=== PATIENT | female | born 1985 | race Caucasian/White ===

== ENCOUNTER 2016-12-20 16:58 | Emergency (ER) | payer OTHER ==
[2016-12-20 16:58] VITALS: BMI 28.1
[2016-12-20 20:03] LABS: BASO % 0.4 % (0.0-2.0); EOS # 0.3 K/uL (0.0-0.7); EOS % 2.2 % (0.0-4.0); HEMATOCRIT 30.9 % (34.0-47.0); LYMPH # 2.5 K/uL (1.0-4.3); LYMPH % 22.5 % (20.0-40.0); MEAN CELL VOLUME 78.4 fL (81.0-99.0); MEAN CORPUSCULAR HEMOGLOBIN 24.3 pg (27.0-31.0); MEAN PLATELET VOLUME 8.6 fL (7.2-11.7); MONO # 0.9 K/uL (0.0-0.8); MONO % 7.7 % (0.0-10.0); RED CELL DISTRIBUTION WIDTH 14.3 % (11.5-14.5); WHITE BLOOD COUNT 11.3 K/uL (4.8-10.8)
[2016-12-20 20:07] LABS: CHLORIDE 102 mmol/L (98-107); POTASSIUM 3.8 mmol/L (3.6-5.2); SODIUM 137 mmol/L (132-148)
[2016-12-20 20:09] LABS: GFR AFRICAN-AMERICAN > 60
[2016-12-20 20:10] LABS: ALB/GLOB RATIO 1.2 (1.0-2.1); ALKALINE PHOSPHATASE 58 U/L (38-126); ALT/SGPT 36 U/L (9-52); AST/SGOT 23 U/L (14-36); BILIRUBIN,TOTAL 0.4 mg/dL (0.2-1.3); BLOOD UREA NITROGEN 8 mg/dL (7-17); CALCIUM 8.2 mg/dl (8.6-10.4); CARBON DIOXIDE 26 mmol/L (22-30); GLUCOSE,RANDOM 97 mg/dL (65-105); TOTAL PROTEIN 7.6 g/dL (6.3-8.3)
--- NOTE | 2016-12-20 20:10 | C.PDOC ---
History Of Present Illness The patient, a 31 y/o female, presents to the ED for evaluation of lower abdominal pain which began today. Patient states she was evaluated in [facility] around 2 days ago and was informed of early with Beta count of 197. Patient underwent Ultrasound; results showed no definite . Patient denies fever, chills, back pain, dysuria, vaginal bleeding/ discharge. Chief Complaint (Nursing): Abdominal Pain History Per: Patient History/Exam Limitations: no limitations Onset/Duration Of Symptoms: Days (2) Current Symptoms Are (Timing): Still Present Location Of Pain/Discomfort: Other (lower abdomen ) Radiation Of Pain To:: None Quality Of Discomfort: "Pain" Associated Symptoms: denies: Fever, Chills, Nausea, Vomiting, Back Pain Exacerbating Factors: None Alleviating Factors: None Last Bowel Movement: Today Additional History Per: Patient Abnormal Vaginal Bleeding: No Past Medical History Reviewed: Historical Data, Nursing Documentation, Vital Signs Vital Signs: Last Vital Signs Temp 98.5 F 12/20/16 17:08 Pulse 87 12/20/16 17:08 Resp 15 12/20/16 17:08 BP 141/81 12/20/16 17:08 Pulse Ox 100 12/20/16 21:38 - Medical History PMH: No Chronic Diseases Surgical History: - [facility] Procedures LOW CERVICAL (07/03/13) PACKED CELL TRANSFUSION (07/03/13) Family History: States: Unknown Family Hx - Social History Hx Tobacco Use: No Hx Alcohol Use: No Hx Substance Use: No - Immunization History Hx Tetanus Toxoid Vaccination: Yes Hx Influenza Vaccination: Yes Hx Pneumococcal Vaccination: Yes Review Of Systems Except As Marked, All Systems Reviewed And Found Negative. Constitutional: Negative for: Fever, Chills Gastrointestinal: Positive for: Abdominal Pain (lower ). Negative for: Nausea, Vomiting Genitourinary: Negative for: Vaginal Discharge, Vaginal Bleeding Musculoskeletal: Negative for: Back Pain Physical Exam - Physical Exam Appears: Non-toxic, No Acute Distress Skin: Normal Color, Warm, Dry Head: Atraumatic, Normacephalic Eye(s): bilateral: Normal Inspection Oral Mucosa: Moist Neck: Normal ROM, Supple Chest: Symmetrical, No Deformity, No Tenderness Cardiovascular: Rhythm Regular, No Murmur Respiratory: Normal Breath Sounds, No Rales, No Rhonchi, No Wheezing Gastrointestinal/Abdominal: Tenderness (mild to siprapubic region ), No Guarding , No Rebound Back: Normal Inspection, No Vertebral Tenderness, No Paraspinal Tenderness Extremity: Normal ROM, Capillary Refill (less than 2 seconds ) Neurological/Psych: Oriented x3, Normal Speech, Normal Cognition Gait: Steady ED Course And Treatment - Laboratory Results Result Diagrams: 12/20/16 19:50 12/20/16 19:50 O2 Sat by Pulse Oximetry: 100 (on RA) Pulse Ox Interpretation: Normal - CT Scan/US US Pelvis transabdominal Other Rad Studies (CT/US): Interpreted By Me, Read By Radiologist, Radiology Report Reviewed CT/US Interpretation: EXAM: US Pelvis Complete, Transabdominal. US Pelvis, Transvaginal. CLINICAL HISTORY: 31 years old, female; Pain; Pelvic pain; Additional info: Lower abd pain. TECHNIQUE: Real-time transabdominal and transvaginal pelvic ultrasound (complete) with image documentation. Transvaginal imaging was used for better evaluation of the endometrium and adnexa. COMPARISON: No relevant prior studies available. FINDINGS: Uterus/ cervix: The uterus measures 9.3 x 4.2 x 5.5 cm. Endovaginal ultrasound was performed for. more precise delineation of the endometrium and the ovaries. The ovaries were not well seen. Bladder: Unremarkable as visualized. Wall is normal thickness for degree of distention. IMPRESSION: Endometrial stripe and ovaries not clearly delineated. US Pelvis, transvaginal Other Rad Studies (CT/US): Interpreted By Me, Read By Radiologist, Radiology Report Reviewed CT/US Interpretation: EXAM: US Pelvis, Transvaginal. CLINICAL HISTORY: 31 years old, female; Pain; Pelvic pain; Additional info: Lower abd pain. TECHNIQUE: Real-time transvaginal pelvic ultrasound (complete) with image documentation. Transvaginal. imaging was used for better evaluation of the endometrium and adnexa. EXAM DATE/TIME: Exam ordered 12/20/2016 7:41 PM. COMPARISON: US - OB TRANSVAGINAL 11/15/2015 1:11:03 AM. FINDINGS: Uterus/cervix: The endometrium stripe measures 1 cm in thickness. Nabothian cysts are seen in the. cervix. Right ovary: The right ovary measures 6.2 x 4.8 x 5 cm and contains 2 dominant cysts. One. measures 2.4 cm in greatest diameter appears to be a simple cyst. A second measures 4 cm in. greatest diameter and contains a internal septation which is slightly thickened. Echoes are noted. within the cyst fluid. Blood flow is demonstrated within the right ovary on color Doppler and pulse. Doppler examination. Left ovary: Left ovary measures 4.1 x 2.2 x 3.8 cm and contains several subcentimeter follicles. A. small amount of free fluid is seen around the ovary. Blood flow is demonstrated within the left ovary. on color Doppler and pulsed of her examination. Free fluid: There is small amount of free fluid in the posterior cul-de-sac. Bladder : Empty bladder which cannot be evaluated with this probe. IMPRESSION: 1. Complex right ovarian cyst. In light of the slightly thickened internal septation, followup in 6 weeks. should be considered to document resolution. Progress Note: labs and US ordered and reviewed. Disposition Counseled Patient/Family Regarding: Diagnosis - Disposition Referrals: [facility] [Outside] Disposition: HOME/ ROUTINE Disposition Time: 21:36 Condition: STABLE Prescriptions: Nitrofurantoin Macrocrystals [Macrobid] 100 mg PO BID #14 cap Instructions: (ED), Urinary Tract Infection in (ED) - POA Present On Arrival: None - Clinical Impression Clinical Impression: Early stage of , Urinary tract infection affecting - Scribe Statement The provider has reviewed the documentation as recorded by the Scribe (Jael Grimes) Provider Attestation: All medical record entries made by the Scribe were at my direction and personally dictated by me. I have reviewed the chart and agree that the record accurately reflects my personal performance of the history, physical exam, medical decision making, and the department course for this patient. I have also personally directed, reviewed, and agree with the discharge instructions and disposition.
--- NOTE | 2016-12-20 20:42 | US ---
EXAM: US Pelvis Complete, Transabdominal US Pelvis, Transvaginal CLINICAL HISTORY: 31 years old, female; Pain; Pelvic pain; Additional info: Lower abd pain TECHNIQUE: Real-time transabdominal and transvaginal pelvic ultrasound (complete) with image documentation. Transvaginal imaging was used for better evaluation of the endometrium and adnexa. COMPARISON: No relevant prior studies available. FINDINGS: Uterus/cervix: The uterus measures 9.3 x 4.2 x 5.5 cm. Endovaginal ultrasound was performed for more precise delineation of the endometrium and the ovaries The ovaries were not well seen. Bladder: Unremarkable as visualized. Wall is normal thickness for degree of distention. IMPRESSION: Endometrial stripe and ovaries not clearly delineated. EXAM: US Pelvis, Transvaginal CLINICAL HISTORY: 31 years old, female; Pain; Pelvic pain; Additional info: Lower abd pain TECHNIQUE: Real-time transvaginal pelvic ultrasound (complete) with image documentation. Transvaginal imaging was used for better evaluation of the endometrium and adnexa. EXAM DATE/TIME: Exam ordered 12/20/2016 7:41 PM COMPARISON: US - OB TRANSVAGINAL 11/15/2015 1:11:03 AM FINDINGS: Uterus/cervix: The endometrium stripe measures 1 cm in thickness. Nabothian cysts are seen in the cervix. Right ovary: The right ovary measures 6.2 x 4.8 x 5 cm and contains 2 dominant cysts. One measures 2.4 cm in greatest diameter appears to be a simple cyst. A second measures 4 cm in greatest diameter and contains a internal septation which is slightly thickened. Echoes are noted within the cyst fluid. Blood flow is demonstrated within the right ovary on color Doppler and pulse Doppler examination. Left ovary: Left ovary measures 4.1 x 2.2 x 3.8 cm and contains several subcentimeter follicles. A small amount of free fluid is seen around the ovary. Blood flow is demonstrated within the left ovary on color Doppler and pulsed of her examination. Free fluid: There is small amount of free fluid in the posterior cul-de-sac. Bladder: Empty bladder which cannot be evaluated with this probe. IMPRESSION: 1. Complex right ovarian cyst. In light of the slightly thickened internal septation, followup in 6 weeks should be considered to document resolution.
[2016-12-20 20:47] LABS: RBC URINE 6 /hpf (0-3); URINE BILIRUBIN NEGATIVE (NEGATIVE); URINE COLOR Yellow (YELLOW); URINE GLUCOSE (UA) 2+ mg/dL (Normal); URINE KETONE NEGATIVE (NEGATIVE); URINE LEUKOCYTE ESTERASE 1+ Leu/uL (Negative); URINE PROTEIN NEGATIVE (NEGATIVE); URINE UROBILINOGEN NORMAL mg/dL (0.2-1.0); WBC URINE 6 /hpf (0-5)
[2016-12-20 20:49] LABS: URINE BACTERIA RARE (<OCC); URINE BLOOD 1+ (NEGATIVE)
[2016-12-20 22:01] VITALS: BP 123/74; PULSE 91; RESP 18; TEMP 98.2; O2SAT 99
== END 2016-12-20 22:00 | disposition home or self-care (01) ==
LOC: C.ER 16:58
DX: O23.41 Unspecified infection of urinary tract in pregnancy, first trimester (principal)

== ENCOUNTER 2017-11-02 20:56 | Emergency (ER) | payer OTHER ==
[2017-11-02 20:56] VITALS: BMI 28.1
[2017-11-02 21:11] VITALS: O2SAT 100
[2017-11-02] MEDS ORDERED: Sodium Chloride 0.9% 1,000 ML IV ONE ×2 (22:31→23:21)
[2017-11-02] MEDS ORDERED: Sodium Chloride 0.9% 1,000 ML ONE ×2 (22:37→23:37)
[2017-11-02 22:51] LABS: BASO # 0.1 K/uL (0.0-0.2); BASO % 0.8 % (0.0-2.0); EOS # 0.1 K/uL (0.0-0.7); HEMOGLOBIN 11.4 g/dL (11.0-16.0); LYMPH # 3.2 K/uL (1.0-4.3); MEAN CELL VOLUME 84.5 fL (81.0-99.0); MEAN CORPUSCULAR HEMOGLOBIN 27.3 pg (27.0-31.0); MEAN CORPUSCULAR HGB CONC 32.3 g/dL (33.0-37.0); MEAN PLATELET VOLUME 9.1 fL (7.2-11.7); MONO # 0.7 K/uL (0.0-0.8); MONO % 5.2 % (0.0-10.0); NEUT # 8.6 K/uL (1.8-7.0); RBC 4.18 Mil/uL (3.80-5.20); RED CELL DISTRIBUTION WIDTH 15.8 % (11.5-14.5); WHITE BLOOD COUNT 12.6 K/uL (4.8-10.8)
--- NOTE | 2017-11-02 22:52 | C.PDOC ---
History Of Present Illness Patient is a 32 y/o female, 8 weeks , who presents to the ED with a complaint of vomiting for the last week with onset of diarrhea today. Patient reports to have seen PMD for symptoms who suggested possible dehydration, prompting ED visit. Patient has Hx of DM, check her glucose several times a day and has been managing with insulin. Denies any fever, abdominal pain, vaginal bleeding or discharge. Patient notes otherwise, does not feel sick. Time Seen by Provider: 11/02/17 22:24 Chief Complaint (Nursing): GI Problem History Per: Patient History/Exam Limitations: no limitations Onset/Duration Of Symptoms: Days (1 week) Current Symptoms Are (Timing): Still Present Recent travel outside of the [place]: No Past Medical History Reviewed: Historical Data, Nursing Documentation, Vital Signs Vital Signs: Last Vital Signs Temp 98.0 F 11/02/17 21:07 Pulse 84 11/02/17 21:07 Resp 16 11/02/17 21:07 BP 138/87 11/02/17 21:07 Pulse Ox 100 11/02/17 22:55 - Medical History PMH: Diabetes Surgical History: - [facility] Procedures LOW CERVICAL (07/03/13) PACKED CELL TRANSFUSION (07/03/13) Family History: States: No Known Family Hx - Social History Hx Tobacco Use: No Hx Alcohol Use: No Hx Substance Use: No - Immunization History Hx Tetanus Toxoid Vaccination: Yes Hx Influenza Vaccination: Yes Hx Pneumococcal Vaccination: Yes Review Of Systems Constitutional: Negative for: Fever Gastrointestinal: Positive for: Vomiting, Diarrhea. Negative for: Abdominal Pain Genitourinary: Negative for: Vaginal Discharge, Vaginal Bleeding Physical Exam - Physical Exam Appears: Well, Non-toxic, No Acute Distress Skin: Normal Color, Warm, Dry Head: Atraumatic, Normacephalic Oral Mucosa: Moist Chest: Symmetrical Cardiovascular: Rhythm Regular, No Murmur Respiratory: Normal Breath Sounds, No Rales, No Rhonchi, No Wheezing Gastrointestinal/Abdominal: Soft, No Tenderness Neurological/Psych: Oriented x3, Normal Speech, Normal Cognition ED Course And Treatment - Laboratory Results Result Diagrams: 11/02/17 22:46 11/02/17 22:46 Lab Interpretation: Abnormal (HCO3 20, BHCG 180450.00) O2 Sat by Pulse Oximetry: 100 Pulse Ox Interpretation: Normal Progress Note: HCG urine, blood work, and UA ordered. Zofran and IV fluids administered. Reevaluation Time: 23:56 Reassessment Condition: Improved (No further nausea after Zofran. Feels better after hydration.) Disposition Counseled Patient/Family Regarding: Studies Performed, Diagnosis, Need For Followup - Disposition Referrals: Roby Brown MD [Medical Doctor] - Disposition: HOME/ ROUTINE Disposition Time: 23:59 Condition: IMPROVED Additional Instructions: Take the medication as prescribed by your doctor for nausea. Instructions: Nausea and Vomiting of Forms: [employer] (Croatian) - Clinical Impression Clinical Impression: Hyperemesis affecting , antepartum - Scribe Statement The provider has reviewed the documentation as recorded by the Scribe Sandra Murguia All medical record entries made by the Scribe were at my direction and personally dictated by me. I have reviewed the chart and agree that the record accurately reflects my personal performance of the history, physical exam, medical decision making, and the department course for this patient. I have also personally directed, reviewed, and agree with the discharge instructions and disposition.
[2017-11-02 22:57] LABS: SQUAMOUS EPITHIAL 3 /hpf (0-5); URINE BILIRUBIN NEGATIVE (NEGATIVE); URINE BLOOD NEGATIVE (NEGATIVE); URINE CLARITY Hazy (Clear); URINE COLOR Yellow (YELLOW); URINE GLUCOSE (UA) NORMAL (Normal); URINE LEUKOCYTE ESTERASE NEG Leu/uL (Negative); URINE PROTEIN NEGATIVE (NEGATIVE); URINE UROBILINOGEN NORMAL mg/dL (0.2-1.0)
[2017-11-02 23:01] LABS: ALBUMIN 4.4 g/dL (3.5-5.0); ALT/SGPT 19 U/L (9-52); AST/SGOT 24 U/L (14-36); BLOOD UREA NITROGEN 9 mg/dL (7-17); CALCIUM 9.3 mg/dl (8.6-10.4); GFR AFRICAN-AMERICAN > 60; GFR NON-AFRICAN AMERICAN > 60
[2017-11-03 00:42] VITALS: BP 135/74; PULSE 83; RESP 22; TEMP 98.5
== END 2017-11-03 01:05 | disposition home or self-care (01) ==
LOC: C.ER 20:56
DX: O21.0 Mild hyperemesis gravidarum (principal); Z3A.08 8 weeks gestation of pregnancy
CPT/HCPCS: 80053; 81001; 82948; 84702; 85025; 96361; 96374; 99284; J2405; J7040

== ENCOUNTER 2018-05-09 20:45 | Emergency (ER) | payer OTHER ==
[2018-05-09 21:11] VITALS: BMI 29.4
[2018-05-09] MEDS ORDERED: (Novolog) Insulin Aspart, Recombinant 100 u/ml 10 ml vial SC ONE (21:30)
[2018-05-09 22:05] LABS: SQUAMOUS EPITHIAL 6 /hpf (0-5); URINE BACTERIA OCC (<OCC); URINE BILIRUBIN NEGATIVE (NEGATIVE); URINE BLOOD NEGATIVE (NEGATIVE); URINE CLARITY Clear (Clear); URINE COLOR Yellow (YELLOW); URINE GLUCOSE (UA) 3+ mg/dL (Normal); URINE LEUKOCYTE ESTERASE NEG Leu/uL (Negative); URINE PROTEIN NEGATIVE (NEGATIVE); URINE UROBILINOGEN NORMAL mg/dL (0.2-1.0)
--- NOTE | 2018-05-10 00:54 | OBHP ---
Datetime: 05/09/2018 21:02 IP Adm Impression: Postterm, intrauterine IP Chief Complaint Other: headache, 05/08/18 IP Admit Plan: Discharge home Admit Comment, IP Provider: 33 y.o. , LMP 09/04/17, LANDRY 06/12/18, Ega 35w 1d, previous C/S x 1, type II DM presents c/o headache, onset 05/08/18; no headache now, just reports a "heaviness to he r head". Denies blurred vision, dizziness, loss of consciousness. Decreased FM - "all day"; denies LO F, VB, Ctx. F.S.: a) 05/08 96/102/130 (admits to eating something not approoved for DM)/116. b) 1/ didn't eat luch/ 199 at 2100 hours on L_D. care: [facility] [place], high risk clinic: prev C/S, type II DM, on baby ASA - "to prevent clots". "cyst on baby" - S/P amniocentesis and MRI - all "negative". P Ob: 2012, C/S, achieved fully dilated; failure to descend; female, 9 1/2 lb; gestational DM on m etformin. Spont ab x 2: 2016 @ 10 weeks, 2017, 4 weeks - no D_C in either situation. P [employer]: 12 x monthly x 5. no h/o abnormal Pap, myoma, ovarian cysts. PMH: DM, 2012 PSH: C/S NKDA Meds: Metformin 500 mg p.o. BID; insulin 8 units QHS; baby ASA - QD; PNV - QD Soc Hx: denies tobacco, illicit drug or EtOH use. x 6 years Fam Hx: Mother alive 57 - DM. Father alive 53 y.o. - Hodgkin's lymphoma P.E.: as above. Mildly obese, in NAD. Awake, alert, oriented to time, person and place. Cooperati ve. - U/A: glucose 3+ (collected less than 1 hours after eating); all else neg/wnl - F.S. 199. 2 units Novolog given. F.S. 1 hour after = 130 mg/dL. - Review of images (report pending): cephalic, anterior placenta, TRAMAINE 12.5 cm; BPS 02/22 Assessment: 33 y.o. P1021, 35w 1d, prev C/S, Type 2 DM, decreased FM - improved. Category 1 tracin g. Not in labor. F.S. with adequate response to insulin. Patient to check F.S. when she gets home; an d to take 1/2 her bedtime insulin dose if >130 mg/dL. Patient is clinically stable. Plan: 1) Discharge 2) as above. 3) Keep appointment, 05/11/18 Pelvic Type - PN: Adequate Extremities - PN: Normal Abdomen - PN: Normal Back - PN: Normal Breast - PN: Not Done Lungs - PN: Normal Heart - PN: Normal Thyroid - PN: Not Done Neurologic - PN: Normal HEENT - PN: Normal General - PN: Normal FHR - Baseline A Provider: 150 Comments, ACOG Physical Exam: Abdomen: Gravid. Obese. Soft, non tender. Healed Pfannenstiel scar. All other systems reviewed and are negative Gestation - Est Wks by US: 35w 1d IP Chief Complaint: Other NICHD Variability Prov Fetus A: Moderate 6-25bpm NICHD Accel Fetus A IP Provider: [id number] FHR Category Provider Fetus A: Category I NICHD Decel Fetus A IP Provider: None Dilatation, Provider: 35w 1d Genitourinary Exam: Normal DTRs - PN: Not Done
[2018-05-10 10:56] VITALS: BP 108/69; PULSE 83; RESP 20; TEMP 98.7
--- NOTE | 2018-05-10 11:06 | US ---
Indication: decr FM; 35w 1d, Type2 DM Comparison: None available Technique: Real-time ultrasound was performed through the pelvis. Findings: There is a single living fetus in cephalic presentation. Amniotic fluid volume is within normal limits. Anterior placenta. The placenta is not previa. There are no adnexal masses or cysts evident. Cervix length measures approximately 3.1 cm. Please note that this study was performed for the emergent evaluation of decreased movement, and the whole anatomic survey of the fetus was not performed. Measurements and calculations: Fetus has a composite sonographic age of 37 weeks 1 day. This calculation is based on the biparietal diameter, head circumference, abdominal circumference, and femur length. Estimated heart rate 127.8 beats per min. Estimated weight 2966 g. Impression: Single living fetus with a composite sonographic age of 37 weeks 1 day. Estimated heart rate 127.8 beats per min. Preliminary impression was provided by [employer]
== END 2018-05-10 00:47 | disposition home or self-care (01) ==
LOC: C.EROB 20:45
DX: O26.893 Other specified pregnancy related conditions, third trimester (principal); R51 Headache; O24.415 Gestational diabetes mellitus in pregnancy, controlled by oral hypoglycemic drugs; Z3A.35 35 weeks gestation of pregnancy